=== PATIENT | female | born 1975 | race Caucasian/White ===

== ENCOUNTER → 2019-07-29 16:21 | Outpatient (CLI) | payer OTHER, SELFPAY ==
--- NOTE | ~2019-07-29 | MM_ITS ---
EXAMINATION: MM screening alvaro BI w mariah HISTORY: Screening mammogram TECHNIQUE: Craniocaudal and mediolateral oblique 3-D tomosynthesis images were obtained and synthetic 2-D images were generated. CAD analysis was submitted and interpreted. COMPARISON: 07/26/2018, 07/24/2017, 07/22/2016 bilateral digital screening mammogram examinations BREAST PARENCHYMAL COMPOSITION: The breasts are almost entirely fatty. FINDINGS: There is no evidence of suspicious mass, calcification, or architectural distortion to sugg est malignancy in either breast. There has been no suspicious interval change. IMPRESSION: 1. No mammographic evidence of malignancy. 2. Recommend routine screening mammography in one year. BI-RADS Category 1: Negative Reviewed, dictated and finalized at location A. TRIC TRIPPER MACHINE OPERATOR
== END ==
PROVIDERS: Visit Provider Nurse Practitioner
DX: Z12.31 Encounter for screening mammogram for malignant neoplasm of breast (principal)
CPT/HCPCS: 77063; 77067

== ENCOUNTER → 2020-07-31 15:38 | Outpatient (CLI) | payer OTHER, SELFPAY ==
--- NOTE | ~2020-07-31 | MM_ITS ---
EXAMINATION: MM screening alvaro BI w mariah HISTORY: Screening mammogram TECHNIQUE: Craniocaudal and mediolateral oblique 3-D tomosynthesis images were obtained and synthetic 2-D images were generated. CAD analysis was submitted and interpreted. COMPARISON: 07/29/2019, 07/26/2018, 07/24/2017 bilateral digital screening mammogram examinations BREAST PARENCHYMAL COMPOSITION: The breasts are almost entirely fatty. FINDINGS: There is no evidence of suspicious mass, calcification, or architectural distortion to sugg est malignancy in either breast. There has been no suspicious interval change. IMPRESSION: 1. No mammographic evidence of malignancy. 2. Recommend routine screening mammography in one year. BI-RADS Category 1: Negative Reviewed, dictated and finalized at location A. R TRANSPORT SYSTEMS SPECIALIST
== END ==
PROVIDERS: Visit Provider Nurse Practitioner
DX: Z12.31 Encounter for screening mammogram for malignant neoplasm of breast (principal)
CPT/HCPCS: 77063; 77067

== ENCOUNTER 2021-07-19 06:13 | Day surgery (SDC) | payer OTHER, SELFPAY ==
[2021-07-19] VITALS (17 sets, daily range): BP systolic 94–149; BP diastolic 46–89; PULSE 68–95; RESP 12–18; TEMP 35.7–36.6; O2SAT 94–100; BMI 38.6
--- NOTE | ~2021-07-19 | CT_ITS ---
EXAMINATION: CT abdomen pelvis w con DATE: 07/19/2021 08:33 INDICATION: Epigastric and upper abdominal pain, nausea, vomiting, indigestion TECHNIQUE: Computed tomography (CT) of the abdomen and pelvis was performed with 100 cc Omnipaque 350 intravenous contrast. Automated exposure control and iterative reconstruction technique were employe d. Exam dose: 1198.33 mGy-cm total exam DLP. COMPARISON: None. FINDINGS: The lung bases are clear. Normal heart size. Trace pericardial fluid. No hepatic, splenic, pancreatic, and adrenal or renal space-occupying mass lesion is detected. The gallbladder is present. Borderline gallbladder wall thickening. Cholelithiasis or acute cholecyst itis are not excluded. Consider gallbladder ultrasound considering the complaint of epigastric and up per abdominal pain, nausea and vomiting. No bile duct or pancreatic duct dilatation. No urinary tract calculus or hydroureteronephrosis. Normal caliber of the abdominal aorta. No intraperitoneal or retroperitoneal or pelvic mass lesion or adenopathy or ascites. The uterus, adnexa and urinary bladder are unremarkable. Normal appendix. No bowel obstruction, bowel wall thickening, pneumatosis or intraperitoneal free air is detected. Small fat-containing umbilical hernia. Degenerative spurring of the lower thoracic spine. Severe degenerative disc disease at L4-5 with minimal retrolisthesis. Moderately severe degenerative disc disease at L5-S1. IMPRESSION: Borderline gallbladder wall thickening; cholelithiasis or acute cholecystitis are not ex cluded. Consider gallbladder ultrasound examination Reviewed, dictated and finalized at [facility]. Reviewed, dictated and finalized at location A. S RECRUITMENT SPECIALIST IMPRESSION: Borderline gallbladder wall thickening; cholelithiasis or acute ch olecystitis are not excluded. Consider gallbladder ultrasound examination
--- NOTE | ~2021-07-19 | US_ITS ---
US abdomen limited DATE: 07/19/2021 11:09 INDICATION: Upper abdominal, epigastric abdominal pain TECHNIQUE: Real-time imaging and Doppler analysis, right upper quadrant COMPARISON: 07/19/2021 CT abdomen pelvis FINDINGS: The pancreas appears normal. Normal hepatopedal portal venous flow direction. No hepatic space-occupying mass lesion is evident. The gallbladder wall is thickened, measuring up to 5 mm width. There is a 1 cm filling defect of the gallbladder neck with shadowing consistent with cholelithiasis. The stone does not demonstrate mobili ty. The common bile duct measures 4.8 mm, within normal range. The sonographic Moreau's sign is negative but the patient is reportedly on pain medication which make s the sign unreliable. IMPRESSION: Fixed approximately once every stone in gallbladder neck with thickening of the gallbladd er wall, suggesting acute cholecystitis Reviewed, dictated and finalized at [facility]. Reviewed, dictated and finalized at location A. CHOOL ASSISTANT TEACHER IMPRESSION: Fixed approximately once every stone in gallbladder neck with thick ening of the gallbladder wall, suggesting acute cholecystitis
[2021-07-19 07:00] LABS: Basophils Percent Auto 0.2 % (0.2-1.2); Eosinophils Percent Auto 0.2 % (0-4.4); Hematocrit 44.3 % (37.0-47.0); Immature Granulocyte Absolute 0.03 K/mm3 (0.00-0.031); Immature Granulocyte Percent A 0.4 % (0-0.5); Lymphocytes Absolute Auto 1.24 K/mm3 (0.9-3.2); Lymphocytes Percent Auto 15.4 % (18.3-44.2); Mean Corpuscular HGB Conc 33.9 g/dl (32-36); Mean Corpuscular Hemoglobin 31.7 pg (26-34); Mean Corpuscular Volume 93.7 fl (80-100); Mean Platelet Volume 9.2 fl (7.4-10.4); Monocytes Absolute Auto 0.3 K/mm3 (0.1-0.6); Monocytes Percent Auto 3.2 % (2.6-8.5); Neutrophils Absolute Auto 6.5 K/mm3 (1.3-6.7); Neutrophils Percent Auto 80.6 % (45.5-73.1); Platelet Count Result 288 k/mm3 (150-375); Red Blood Count 4.73 M/mm3 (4.2-5.4); Red Cell Distribution Width 12.2 % (11.5-14.5); White Blood Count 8.1 K/mm3 (4.5-10.0)
[2021-07-19 07:21] LABS: Add Urine Microscopic? YES; Amorphous Sediment Urine Few; Appearance Urine Cloudy (Clear); Bacteria Urine Trace /hpf; Bilirubin Urine Negative (Negative); Blood Urine 2+ (Negative); Color Urine Yellow (Yellow); Glucose Urine UA Negative (Negative); Ketones Urine Trace mg/dL (Negative); Leukocyte Esterase Ur Trace LEU/UL (Negative); Nitrate Urine Negative (Negative); Protein Urine 1+ mg/dL (Negative); RBC Urine >75 /hpf (0-2); Squamous Epithelial Cell Urine Occasional /hpf (Few); Urobilinogen Urine Negative mg/dL (<2.0); WBC Urine 0-3 /hpf
[2021-07-19 07:22] LABS: Alanine Aminotransferase 22 U/L (4-35); Albumin Level 4.8 g/dL (3.5-5.1); Alkaline Phosphatase 84 U/L (38-126); Anion Gap 11 mmol/L (8-16); Aspartate Amino Transferase 35 U/L (14-36); Bilirubin,Total 0.7 mg/dL (0.2-1.3); Blood Urea Nitrogen 28 mg/dL (7-17); Calcium 9.2 mg/dL (8.4-10.2); Carbon Dioxide 27 mmol/L (22-30); Chloride 98 mmol/L (98-107); Estimated CRCL calculation 72 ml/min; Estimated Glomerular Filt Rate 59; Glucose 128 mg/dL (65-110); Lipase 121 U/L (23-300); Potassium 4.4 mmol/L (3.4-5.0); Sodium 136 mmol/L (137-145)
[2021-07-19] MEDS: ONDANSETRON INJ 4 MG/2 ML VIAL IV PUSH ×2 (08:43→17:54)
[2021-07-19] MEDS: SODIUM CHLORIDE 0.9% IV 1,000 ML 999 ML IV CONT (08:43)
[2021-07-19] MEDS: MORPHINE SULFATE (*CRX) 4 MG/ML INJ IV PUSH (08:43)
--- NOTE | 2021-07-19 10:44 | ED.ABDPAIN ---
HPI - Abdominal Pain General Chief Complaint: Abdominal Pain Stated Complaint: acid reflux since 0100 Time Seen by Provider: 07/19/21 07:35 Source: patient Mode of arrival: ambulatory Limitations: no limitations History of Present Illness HPI narrative: Patient is 45 years old white female woke up at 1 AM with severe pain at the abdomen, all over, radiating to the right upper back associated with nausea and vomiting twice. Patient could not find any comfortable position. Patient denies aggravating or relieving factors. Or having similar symptoms. Patient have 3 doses of COVID-vaccine. Patient been taking Tylenol and Advil with a slight improvement. History of GERD, endometriosis. Patient does not smoke or uses drugs, drinks occasionally last wine intake was 2 hours prior to go to bed. Related Data Home Medications Medication Instructions Recorded Confirmed norgestrel-ethinyl estradiol tablet 07/19/21 [Low-Ogestrel (28)] rimegepant [Nurtec ODT] mg 07/19/21 Allergies Allergy/AdvReac Type Severity Reaction Status Date / Time Sulfa (Sulfonamide Allergy Mild Hives Verified 07/19/21 06:53 Antibiotics) Review of Systems Review of Systems: CONSTITUTIONAL: Denies fever, chills, or sweats. EYES: Denies visual changes, redness, or discharge. ENT: Denies rhinorrhea, congestion, sore throat, or otalgia. CARDIOVASCULAR: Denies chest pain, palpitations, or edema. RESPIRATORY: Denies cough or dyspnea. GASTROINTESTINAL: Denies abdominal pain, nausea, vomiting, or diarrhea. GENITOURINARY: Denies dysuria or hematuria. SKIN: Denies rash or itching. MUSCULOSKELETAL: Denies back pain, joint pain, or myalgia. NEUROLOGIC: Denies headache, numbness, or weakness. PSYCHIATRIC: Denies anxiety or depression. Exam Narrative: General appearance: Well-developed, well-nourished Skin: Normal color Head: Normocephalic, nontraumatic Eyes: Clear conjunctiva ENT: Oropharynx normal, ears normal, nose normal Neck: Supple, nontender Chest and respiratory: Airway patent, no respiratory distress, no accessory muscle use Heart: Regular rate/rhythm Abdomen: Soft, mild tenderness epigastric right upper quadrant and left upper quadrant, no organomegaly, quiet bowel sounds Vascular: Normal peripheral pulses, normal capillary refill. Musculoskeletal: Normal range of motion, nontender back Neurologic: Alert and oriented ?3, BOTTLE SORTER is normal as tested, no gross motor deficit Course Course Emergency Course: Stable Vital Signs Vital signs: Vital Signs Temperature 35.7 C L 07/19/21 06:19 Pulse Rate 88 07/19/21 06:19 Respiratory Rate 18 07/19/21 06:19 Blood Pressure 123/87 07/19/21 06:19 Pulse Oximetry 100 07/19/21 06:19 Temperature 35.7 C L 07/19/21 06:19 Pulse Rate 71 07/19/21 10:38 Respiratory Rate 18 07/19/21 10:38 Blood Pressure 104/71 07/19/21 10:38 Pulse Oximetry 98 07/19/21 10:38 MDM - Abdominal Pain MDM Narrative Medical decision making narrative: Gastroesophagitis, cholecystitis, pancreatitis ARE my concern Differential Diagnosis Differential diagnosis: Likely abdominal pain, constipation, gastroenteritis and pancreatitis Lab Data Result diagrams: 07/19/21 06:54 07/19/21 06:54 Labs: Lab Results 07/19/21 07/19/21 07/19/21 Range/Units 06:54 06:54 07:00 WBC 8.1 (4.5-10.0) K/mm3 RBC 4.73 (4.2-5.4) M/mm3 Hgb 15.0 (12.0-15.0) g/dL Hct 44.3 (37.0-47.0) % MCV 93.7 (80-100) fl MCH 31.7 (26-34) pg MCHC 33.9 (32-36) g/dl RDW 12.2 (11.5-14.5) % Plt Count 288 (150-375) k/mm3 MPV 9.2 (7.4-10.4) fl Immature Gran % (Auto) 0.4 (0-0.5) % Neut %
--- NOTE | 2021-07-19 13:21 | PC.NURSE ---
Pt updated on status in er. Pt is resting quietly in no distress.
--- NOTE | 2021-07-19 14:00 | PM.IMHP ---
H&P: HPI History of Present Illness Date/Time: 07/19/21 13:30 Chief Complaint: Epigastric abdominal pain, vomiting Narrative: This is a 45-year-old female with a history of Endometriosis, who presented to the ER with complaints of epigastric abdominal pain and vomiting. She reports having similar, more mild episodes, of similar abdominal pain intermittently over the past few years. Her pain would typically resolve after a few hours. She reports that two nights ago, she woke up around 1:00 am with epigastric abdominal pain radiating to her mid upper back and right side. She took Prilosec, Advil, and tums, and walked around her house. Her pain resolved after a few hours. Yesterday, she was feeling well throughout the day and then ate roast, potatoes, and carrots for dinner. She took a Prilosec before bed due to her pain the night before that she attributed to indigestion, but went to bed feeling normal. She awoke around 1:00 am this morning with severe epigastric abdominal pain. She reported this was worse than prior attacks and even walking aggravated her pain. She took taye-seltzer and tums without relief. She reports one episode of emesis at home and again when arriving at the ER. Due to the unrelenting pain, she presented for evaluation. CT scan of the abdomen and pelvis showed borderline gallbladder wall thickening. RUQ ultrasound showed gallbladder wall thickening with a gallstone in the neck of the gallbladder. Labs unremarkable with a normal WBC count, LFTs, and lipase. Our service was consulted by the ED physician for possible acute calculous cholecystitis. She is now seen in the ER. She reports her pain has completely resolved following the IV Morphine. Denies any nausea at this time. No change in her bowel habits, fever, or chills. She is currently on her menstrual cycle. She reports two previous laparoscopic surgeries as a teenager for Endometriosis. The patient reports being vaccinated for COVID-19 with the Moderna vaccination and had her booster in June 2021. Review of Systems Review of Systems: All systems reviewed & are unremarkable except as noted in HPI and below Constitutional: Constitutional: Reports as per HPI, Denies chills, Denies fatigue and Denies fever(s) ENT: Reports system reviewed and no additional complaints, except as documented, Reports Normal hearing present, Reports headache(s) and Denies sore throat Cardiovascular: Cardiovascular: Reports no additional cardiovascular complaints, Denies chest pain and Denies leg edema Respiratory: Respiratory: Reports no additional respiratory complaints, Denies cough and Denies dyspnea Gastrointestinal: Gastrointestinal: Reports as per HPI, Reports no additional gastrointestinal complaints, Reports abdominal pain, Denies change in bowel habits, Denies change in stool character, Denies constipation, Denies GI cramping, Denies diarrhea, Reports nausea and Reports vomiting Genitourinary: Genitourinary: Denies hematuria and Denies dysuria Integumentary/Breasts: Skin/Breast: Denies jaundice Neurologic: Reports system reviewed and no additional complaints, except as documented, Denies dizziness, Denies focal weakness, Denies numbness and Denies tingling PMFSH Past Medical History Medical History Endometriosis Surgical History Surgical History History of laparoscopy x 2 Family History Family History Sibling Gallbladder disease Social History Social History Smoking status: Never smoker Alcohol intake: current Drinks per week: 2 Substance use: never Occupation/Education: occupation 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
[2021-07-19] MEDS: LACTATED RINGERS 1,000 ML 30 ML IV CONT ×2 (14:30→17:23)
--- NOTE | 2021-07-19 15:13 | WPDANESEPPF ---
Anes - Initial Pre Proc Eval Procedure: Operation Date: 07/19/21 17:30 Proposed Procedures p Laparoscopic Cholecystectomy, Possible Open - Jarred Decker DO Date/Time: 07/19/21 15:13 Surgeon: Jarred Decker DO Pre Op Diagnosis: acid reflux since 99 Patient Data Age: 45 Gender: F Height: 1.63 m Weight: 102 kg Last Vital Signs Temp 36.6 C 07/19/21 14:00 Pulse 80 07/19/21 14:00 Resp 16 07/19/21 14:00 BP 130/52 L 07/19/21 14:00 Pulse Ox 100 07/19/21 14:00 Allergies Allergy/AdvReac Type Severity Reaction Status Date / Time Sulfa (Sulfonamide Allergy Mild Hives Verified 07/19/21 14:29 Antibiotics) Home Medications Medication Instructions Recorded Confirmed Type norgestrel-ethinyl estradiol tablet 07/19/21 History [Low-Ogestrel (28)] rimegepant [Nurtec ODT] mg 07/19/21 History Laboratory Tests 07/19/21 07/19/21 07/19/21 06:54 06:54 07:00 WBC 8.1 K/mm3 K/mm3 (4.5-10.0) RBC 4.73 M/mm3 M/mm3 (4.2-5.4) Hgb 15.0 g/dL g/dL (12.0-15.0) Hct 44.3 % % (37.0-47.0) MCV 93.7 fl fl (80-100) MCH 31.7 pg pg (26-34) MCHC 33.9 g/dl g/dl (32-36) RDW 12.2 % % (11.5-14.5) Plt Count 288 k/mm3 k/mm3 (150-375) MPV 9.2 fl fl (7.4-10.4) Immature Gran % (Auto) 0.4 % % (0-0.5) Neut % (Auto) 80.6 % H % (45.5-73.1) Lymph % (Auto) 15.4 % L % (18.3-44.2) [place] % (Auto) 3.2 % % (2.6-8.5) Eos % (Auto) 0.2 % % (0-4.4) Baso % (Auto) 0.2 % % (0.2-1.2) Lymph # (Auto) 1.24 K/mm3 K/mm3 (0.9-3.2) [place] # (Auto) 0.3 K/mm3 K/mm3 (0.1-0.6) Eos # (Auto) 0.0 K/mm3 K/mm3 (0-0.3) Baso # (Auto) 0.0 K/mm3 K/mm3 (0.0-0.1) Abs Immat Gran (auto) 0.03 K/mm3 K/mm3 (0.00-0.031) Absolute Neuts (auto) 6.5 K/mm3 K/mm3 (1.3-6.7) Absolute Nucleated RBC 0.0 K/mm3 K/mm3 (0.0-0.012) Nucleated RBC % 0.0 % % (0.0-0.2) Sodium 136 mmol/L L mmol/L (137-145) Potassium 4.4 mmol/L mmol/L (3.4-5.0) Chloride 98 mmol/L mmol/L (98-107) Carbon Dioxide 27 mmol/L mmol/L (22-30) Anion Gap 11 mmol/L mmol/L (8-16) BUN 28 mg/dL H mg/dL (7-17) Creatinine 1.00 mg/dL mg/dL (0.7-1.0) Estim Creat Clear Calc 72 ml/min ml/min Estimated GFR 59 (59 - ) Glucose 128 mg/dL H mg/dL (65-110) Calcium 9.2 mg/dL mg/dL (8.4-10.2) Total Bilirubin 0.7 mg/dL mg/dL (0.2-1.3) AST 35 U/L U/L (14-36) ALT 22 U/L U/L (4-35) Alkaline Phosphatase 84 U/L U/L (38-126) Total Protein 8.0 g/dL g/dL (6.3-8.2) Albumin 4.8 g/dL g/dL (3.5-5.1) Lipase 121 U/L U/L (23-300) Urine Color Yellow (Yellow) Urine Appearance Cloudy H (Clear) Urine pH 6.0 (5.0-9.0) Ur Specific [place] 1.030 (1.001-1.035) Urine Protein 1+ mg/dL H mg/dL (Negative) Urine Glucose (UA) Negative mg/dL mg/dL (Negative) Urine Ketones Trace mg/dL mg/dL (Negative) Ur Blood (Man) 2+ H (Negative) Urine Nitrate Negative (Negative) Urine Bilirubin Negative (Negative) Urine Urobilinogen Negative mg/dL mg/dL (<2.0) Leukocyte Esterase Rfl Trace YUNG/UL H YUNG/UL (Negative) Urine RBC >75 /hpf H /hpf (0-2) Urine WBC 0-3 /hpf /hpf Ur Squamous Epith Cells Occasional /hpf /hpf (Few) Amorphous Sediment Few H (None) Urine Bacteria Trace /hpf /hpf Patient hx anesthesia problems: none Family hx anesthesia problems: none Results Review: All pre-operative results and documents have been reviewed as part of the pre-operative evaluation.
[2021-07-19] MEDS: ACETAMINOPHEN 500 MG TABLET 1000 MG PO (15:19)
[2021-07-19] MEDS: KETOROLAC 15 MG/ML VIAL (*BKC) IV PUSH (15:19)
--- NOTE | 2021-07-19 16:11 | WPDHPUPDATE1 ---
History and Physical Update Update Date/Time: 07/19/21 16:11 History and Physical has been reviewed, including an updated exam of the patient. There are NO changes in the patient's condition. Risks, benefits, and alternatives have been discussed and questions answered. Patient agrees to proceed with procedure.
[2021-07-19] MEDS: ceFAZolin 2 GM/D5W 50 ML 2 GM/50 ML BAG IVPB (16:25)
[2021-07-19] MEDS: BUPIVACAINE/EPINEPHRINE 0.5% 10 ML VIAL 30 ML INFILTRATE (16:34)
--- NOTE | 2021-07-19 17:21 | W.PM.PROC2 ---
Procedure Note - Detailed Date of Procedure 07/19/21 Pre-op Diagnosis Acute calculous cholecystitis Post-op Diagnosis same Procedure Performed Laparoscopic Cholecystectomy Surgeon Jarred Decker, DO Anesthesia general and local (0.5% bupivacaine) Indications This is a 45-year-old woman who presented to the emergency department this morning with abdominal pain that woke her from sleep in the middle of the night. She was experiencing epigastric abdominal pain with nausea and vomiting. She thought this might be indigestion at 1st and took some Prilosec. She was still not experiencing any relief and therefore presented to the emergency department. She was found to have a normal white count and normal liver enzymes but CT showed evidence of gallbladder wall thickening. Gallbladder ultrasound showed cholelithiasis with a stone lodged at the neck of the gallbladder and surrounding gallbladder wall thickening. Discussions were made with the patient about treatment options and decision was made to proceed with laparoscopic cholecystectomy, possible open. Findings Laparoscopic cholecystectomy was performed. The gallbladder wall was slightly thickened and edematous. The cystic duct appeared normal in size. No other significant abnormalities were noted within the abdominal cavity. The patient did have 1 medium-sized gallstone within the gallbladder. The gallbladder was removed and sent to the lab for pathology. Description of Procedure Procedure as well as risks, benefits, and alternatives were discussed with patient. Written consent was obtained and placed in chart prior to procedure. The patient was brought back to surgical suite. Patient was placed in supine position on operating table. Time-out was done to confirm patient and procedure. Patient was then intubated by the anesthesia department. Abdomen was prepped and draped in sterile fashion using chlorhexidine prep. 0.5% bupivacaine with epinephrine was infiltrated at each site of incision. A 5 millimeter incision was made near the umbilicus, and a 5 millimeter Optiview trocar was advanced through the abdominal layers under direct visualization. Once inside the abdominal cavity, carbon dioxide was insufflated to create a pneumoperitoneum. The camera was inserted and the abdomen was inspected. No immediate abnormalities were identified. The patient was placed in reverse Trendelenburg position and rotated slightly to the left. An 11 millimeter incision was made in the subxiphoid region, and an 11 millimeter trocar was inserted under direct visualization. Two 5 millimeter incisions were made in the right upper quadrant, and two 5 millimeter trocars were inserted under direct visualization. The gallbladder was identified and grasped at the fundus and retracted superiorly. It was then grasped at the infundibulum retracted laterally. Careful dissection around the neck of the gallbladder was performed using blunt dissection with a [place] grasper and hook electrocautery. The cystic duct was identified, and a window was created behind it. The cystic artery was also identified and a window was created behind it. The critical view of safety was identified, visualizing the cystic duct running directly into the neck of the gallbladder, and the cystic artery running directly into the wall of the gallbladder. A 5 millimeter clip flight control specialist was then used to place 2 clips proximally and 1 clip distally on both the cystic duct and cystic artery. They were then both transected using endoscopic scissors. Once safely away from the van hepatitis, the gallbladder was dissected free from the liver bed using hook electrocautery. Hemostasis was achieved along the way. The gallbladder was removed completely and then removed through the subxiphoid port. The liver bed was then inspected. Hemostasis appeared adequate, and our clips appeared secure. The area was gently irrigated with sterile saline. No other abnormalities
--- NOTE | 2021-07-19 17:47 | SUR.PHASEI ---
Simple mask removed at 1747.
[2021-07-19] MEDS: diphenhydrAMINE HCl INJ 50 MG/ML VIAL 25 MG IV PUSH (17:59)
== END 2021-07-19 19:31 | disposition home or self-care (01) ==
LOC: ANHED 13:17 → ANHSURGERY 13:34
PROVIDERS: Emergency Medicine; Emergency Provider Emergency Medicine; Visit Provider Surgery
PROC: 0FT44ZZ Resection of Gallbladder, Percutaneous Endoscopic Approach (ICD-10-PCS; CPT 47562; principal; 2021-07-19 17:30)
DX: K80.12 Calculus of gallbladder with acute and chronic cholecystitis without obstruction (principal); E66.9 Obesity, unspecified; Z68.38 Body mass index [BMI] 38.0-38.9, adult
CPT/HCPCS: 47562; 36415; 74177; 76705; 80053; 81001; 81025; 83690; 85025; 88304; 96361; 96374; 96375; 99285; A9270; J0690; J1100; J1170; J1200; J1885; J2250; J2270; J2405; J2704; J2710; J3010; J7030; J7120; Q9967

== ENCOUNTER → 2021-09-07 15:35 | Outpatient (CLI) | payer OTHER, SELFPAY ==
--- NOTE | ~2021-09-07 | MM_ITS ---
EXAMINATION: MM screening alvaro BI w mariah HISTORY: Screening TECHNIQUE: Craniocaudal and mediolateral oblique 3-D tomosynthesis images were obtained and synthetic 2-D images were generated. CAD analysis was submitted and interpreted. COMPARISON: Comparison to multiple prior studies sequentially, with oldest reviewed study dated 07/20. BREAST PARENCHYMAL COMPOSITION: The breasts are almost entirely fatty. FINDINGS: There is no evidence of suspicious mass, calcification, or architectural distortion to sugg est malignancy in either breast. There has been no suspicious interval change. IMPRESSION: 1. No mammographic evidence of malignancy. 2. Recommend routine screening mammography in one year. BI-RADS Category 1: Negative Reviewed, dictated and finalized at location A. GATOR OVERHEAD
== END ==
PROVIDERS: Visit Provider Nurse Practitioner
DX: Z12.31 Encounter for screening mammogram for malignant neoplasm of breast (principal)
CPT/HCPCS: 77063; 77067

== ENCOUNTER 2022-07-13 17:32 | Emergency (ER) | payer OTHER, SELFPAY ==
[2022-07-13 18:03] VITALS: BP 131/88; PULSE 76; RESP 16; TEMP 36.8; O2SAT 100
--- NOTE | 2022-07-13 18:53 | ED.EAR ---
HPI - Ear Problem General Chief complaint: Ear Stated complaint: ear ache Time Seen by Provider: 07/13/22 18:50 Source: patient Mode of arrival: ambulatory Limitations: no limitations History of Present Illness HPI Narrative: 38-year-old female presented for complaint of right ear pain, onset yesterday. She endorses prior to this she has had 6 weeks of sinus and right sided facial pressure. Taking [id number] Mucinex and antihistamines without relief. Denies tinnitus, dizziness, decreased hearing, shortness cough, wheezing, nausea vomiting, fevers or chills. MD Complaint: ear pain Related Data Home Medications Medication Instructions Recorded Confirmed norgestrel 0.3 mg-ethinyl 1 tablet DIRECTED 07/19/21 07/13/22 estradiol 30 mcg tablet (Low-Ogestrel (28)) Allergies Allergy/AdvReac Type Severity Reaction Status Date / Time Sulfa (Sulfonamide Allergy Mild Hives Verified 08/13/21 10:23 Antibiotics) Review of Systems Review of Systems: CONSTITUTIONAL: Denies malaise, chills, or fever. EYES: Denies visual changes, redness, or discharge. ENT: Per HPI CARDIOVASCULAR: Denies chest pain, palpitations, or edema. RESPIRATORY: Denies cough or dyspnea. GASTROINTESTINAL: Denies abdominal pain, nausea, vomiting, diarrhea SKIN: Denies rash or itching. MUSCULOSKELETAL: Denies myalgia. 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 There is no relevant family history pertinent to the presenting complaint Exam Narrative: GENERAL: Well-appearing, well-nourished, and in no acute distress. HEAD: Normocephalic EYES: PERRLA, conjunctivae clear ENT: Nares clear. Mucous membranes moist. TM pearly flores with dull light reflex and clear effusion bilaterally; no tragal tenderness. Oropharynx not erythematous without lesions. CHEST: Clear to auscultation, breath sounds equal. HEART: Regular rate and rhythm. No murmur heard. SKIN: Warm, dry, no rash. NEURO: Alert and oriented x3. PSYCH: Normal mood and affect Course Course Emergency Course: Patient is aware of diagnosis, understands and agrees to treatment plan. Anticipatory guidance given. Patient agrees to follow-up as directed and is aware of reasons to seek care at the emergency department. Portions of this record may have been created with voice recognition software Level of Care: Express Care Visit Vital Signs Vital signs: Vital Signs Temperature 98.2 F 07/13/22 18:03 Pulse Rate 76 07/13/22 18:03 Respiratory Rate 16 07/13/22 18:03 Blood Pressure 131/88 07/13/22 18:03 Pulse Oximetry 100 07/13/22 18:03 Oxygen Delivery Room Air 07/13/22 18:03 Temperature 98.2 F 07/13/22 18:03 Pulse Rate 76 07/13/22 18:03 Respiratory Rate 16 07/13/22 18:03 Blood Pressure 131/88 07/13/22 18:03 Pulse Oximetry 100 07/13/22 18:03 Oxygen Delivery Room Air 07/13/22 18:03 Reviewed Medical Decision Making MDM Narrative Medical decision making narrative: Advised supportive measures and signs/symptoms to go to the E
== END 2022-07-13 19:03 | disposition home or self-care (01) ==
PROVIDERS: Emergency Provider Nurse Practitioner Family
DX: J06.9 Acute upper respiratory infection, unspecified (principal); N80.9 Endometriosis, unspecified
CPT/HCPCS: 99213; G0463

== ENCOUNTER → 2022-10-14 15:37 | Outpatient (CLI) | payer OTHER, SELFPAY ==
--- NOTE | ~2022-10-14 | MM_ITS ---
EXAMINATION: MM screening alvaro BI w mariah HISTORY: Screening mammogram TECHNIQUE: Craniocaudal and mediolateral oblique 3-D tomosynthesis images were obtained and synthetic 2-D images were generated. CAD analysis was submitted and interpreted. COMPARISON: 09/07/2021, 07/31/2020, 07/29/2019 bilateral screening mammogram examinations BREAST PARENCHYMAL COMPOSITION: The breasts are almost entirely fatty. FINDINGS: Right breast: There is no evidence of suspicious mass, calcification, or architectural distortion to suggest malignancy in either breast. There has been no suspicious interval change. 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 This may be related to the nipple. Repeat imaging is recommended with nipple marker. Additional diagnostic mammographic imaging and ultrasound, if requir ed, recommend IMPRESSION: New focal ill-defined asymmetry in upper mid left breast, possibly due to nipple. Repeat imaging with nipple marker is recommended. Recommend additional diagnostic imaging and breast ultrasound if neede d BI-RADS Category 0: Incomplete: Needs additional imaging evaluation. Reviewed, dictated and finalized at location A. IMPRESSION: New focal ill-defined asymmetry in upper mid left breast, possibly due to nippl e. Repeat imaging with nipple marker is recommended. Recommend additional diagn ostic imaging and breast ultrasound if needed BI-RADS Category 0: Incomplete: Needs additional imaging evaluation.
== END ==
PROVIDERS: PCP Nurse Practitioner; Visit Provider Nurse Practitioner
DX: Z12.31 Encounter for screening mammogram for malignant neoplasm of breast (principal); R92.8 Other abnormal and inconclusive findings on diagnostic imaging of breast
CPT/HCPCS: 77063; 77067

== ENCOUNTER → 2022-11-24 08:14 | Outpatient (CLI) | payer OTHER, SELFPAY ==
--- NOTE | ~2022-11-24 | MM_ITS ---
EXAMINATION: MM diagnostic alvaro LT w mariah HISTORY: Left breast asymmetry on screening mammogram TECHNIQUE: Additional 3-D tomosynthesis images of the left breast were performed and synthetic 2-D im ages were generated. CAD analysis was submitted and interpreted. COMPARISON: 10/14/2022, 09/07/2021, 07/31/2020 FINDINGS: There is a return to baseline fibroglandular appearance with spot compression of the left b reast in the area questioned on screening mammogram. IMPRESSION: 1. No mammographic evidence of malignancy. 2. Recommend routine screening mammography in one year. BI-RADS Category 1: Negative Reviewed, dictated and finalized at location A.
== END ==
PROVIDERS: PCP Nurse Practitioner; Visit Provider Obstetrics & Gynecology Gynecology
DX: R92.8 Other abnormal and inconclusive findings on diagnostic imaging of breast (principal)
CPT/HCPCS: 77061; 77065; G0279

== ENCOUNTER 2023-10-18 15:40 | Outpatient (CLI) | payer OTHER, SELFPAY ==
--- NOTE | ~2023-10-18 | MM_ITS ---
EXAMINATION: MM screening alvaro BI w mariah HISTORY: Screening TECHNIQUE: Craniocaudal and mediolateral oblique 3-D tomosynthesis images were obtained and synthetic 2-D images were generated. CAD analysis was submitted and interpreted. COMPARISON: Comparison to multiple prior studies sequentially, with oldest reviewed study dated 07/26. BREAST PARENCHYMAL COMPOSITION: Not Dense: Breast are almost entirely fatty. FINDINGS: There is no evidence of suspicious mass, calcification, or architectural distortion to sugg est malignancy in either breast. There has been no suspicious interval change. IMPRESSION: 1. No mammographic evidence of malignancy. 2. Recommend routine screening mammography in one year. BI-RADS Category 1: Negative Reviewed, dictated and finalized at location B.
== END 2023-10-18 15:41 ==
LOC: MICIMG 15:41
PROVIDERS: PCP Nurse Practitioner; Visit Provider Nurse Practitioner
DX: Z12.31 Encounter for screening mammogram for malignant neoplasm of breast (principal)
CPT/HCPCS: 77063; 77067

== ENCOUNTER 2024-10-30 13:47 | Outpatient (CLI) | payer OTHER, SELFPAY ==
--- NOTE | ~2024-10-30 | MM_ITS ---
EXAMINATION: MM screening alvaro BI w mariah HISTORY: Screening TECHNIQUE: Craniocaudal and mediolateral oblique 3-D tomosynthesis images were obtained and synthetic 2-D images were generated. CAD analysis was submitted and interpreted. COMPARISON: Comparison to multiple prior studies sequentially, with oldest reviewed study dated 07/29. BREAST PARENCHYMAL COMPOSITION: Not dense: There are scattered areas of fibroglandular density. FINDINGS: There is no evidence of suspicious mass, calcification, or architectural distortion to sugg est malignancy in either breast. There has been no suspicious interval change. IMPRESSION: 1. No mammographic evidence of malignancy. 2. Recommend routine screening mammography in one year. BI-RADS Category 1: Negative Reviewed, dictated and finalized at location A.
== END 2024-10-30 13:48 | disposition home or self-care (01) ==
PROVIDERS: PCP Internal Medicine; Visit Provider Nurse Practitioner
DX: Z12.31 Encounter for screening mammogram for malignant neoplasm of breast (principal)
CPT/HCPCS: 77063; 77067